=== PATIENT | female | born 1990 | race African-American/Black ===

== ENCOUNTER 2019-10-27 17:09 | Emergency (ER) | payer MEDICAID ==
[~2019-10-27] VITALS: Ht 157.5 cm; Wt 94.0 kg
[2019-10-27] MEDS ORDERED: SODIUM CHLORIDE 0.9% 1,000 ML IV ONE (18:00)
[2019-10-27] MEDS ORDERED: ACETAMINOPHEN 325MG TABLET PO ONE (18:00)
[2019-10-27] MEDS ORDERED: KETOROLAC 15MG/ML VIAL IV ONE (18:00)
[2019-10-27 22:58] VITALS: BP 104/62
== END 2019-10-27 23:01 | disposition home or self-care (01) ==
LOC: ER 17:09
DX: J10.1 Influenza due to other identified influenza virus with other respiratory manifestations (principal); R50.9 Fever, unspecified; R00.0 Tachycardia, unspecified; R05 Cough; R07.89 Other chest pain; Z98.890 Other specified postprocedural states
CPT/HCPCS: 71045; 81025; 87804; 93005; 96374; 99284; J1885; J7030; Z7610